=== PATIENT | male | born 1975 | race Caucasian/White ===

== ENCOUNTER 2019-10-04 06:42 | Inpatient (IN) ==
--- OUTSIDE RECORDS SUMMARY | 2019-10-04 06:45 | External Medical Summary | Continuity of Care Document ---
:1975 Author Name Carmen Roa, Provider Address Unavailable Unavailable , Care Team Providers Name Role Phone Megan Cartagena DO Unavailable [email or web address] Unavailable Unavailable Unavailable Unavailable Unavailable Assessments Assessed Problems:Encounter for preventive health examinationTravel advice encounter Problems Esophageal reflux (530.81) (K21.9) Vitamin D deficiency (268.9) (E55.9) Hypercholesterolemia (272.0) (E78.00) Travel advice encounter (V65.49) (Z71.84) Allergies and Adverse Reactions Iodides (Allergy) Medications Multivitamins TABS; TAKE 1 TABLET DAILY. Refills: 0 Vitamin D3 50 MCG (2000 UT) Oral Capsule; TAKE 1 CAPSULE Joanna ly Refills: 0 Fish Oil CAPS Refills: 0 Azithromycin 250 MG Oral Tablet; TAKE 2 TABLETS ON DAY 1 THEN TAKE 1 TABLET A DAY FOR 4 DAYS. DO Megan Cartagena Start: 17-Oct-2017 Quantity: 6 Refills: 0 Procedures Procedures not documented Immunizations Hepatitis A, adult On: 17-Oct-2017 11:22 Lot #: [id number], [employer] Typhim 25 MCG/0.5ML Intramuscular Solution On: 11:23 Lot #: [id number], [employer] Social History - Smoking Status Never smoker Interventions Medication ChangesAzithromycin 250 MG Oral Tablet - Start Medications/Immunizations AdministeredHepatitis A, adult; Done: 17 Oct 2017 Typhim 25 MCG/0.5ML Intramuscular Solution; Done: 17 Oct 2017 Discussion/SummaryTyphoid injection will be given today. His 1st hepatitis a will be given today. He is instructed to return in 6-12 for his 2nd final vaccination. Azithromycin will be prescribed for traveler's diarrheaneeded. All questions were answered. Plan of Treatment Planned Observations Planned Goals not documented Results No Known Results Results not documented Encounters Appointment; Megan Cartagena DO 17-Oct-2017 13:45 Encounter Diagnosis: Problem not documented
--- OUTSIDE RECORDS SUMMARY | 2019-10-04 06:45 | External Medical Summary | Continuity of Care Document ---
:1975 Author Name Carmen Roa, Provider Address Unavailable Unavailable , Care Team Providers Name Role Phone Megan Cartagena DO Unavailable [email or web address] Unavailable Unavailable Unavailable Unavailable Unavailable Assessments Assessed Problems:Encounter for preventive health examinationTravel advice encounter Problems Travel advice encounter (V65.49) (Z71.84) Hypercholesterolemia (272.0) (E78.00) Vitamin D deficiency (268.9) (E55.9) Esophageal reflux (530.81) (K21.9) Allergies and Adverse Reactions Iodides (Allergy) Medications Fish Oil CAPS Refills: 0 Azithromycin 250 MG Oral Tablet; TAKE 2 TABLETS ON DAY 1 THEN TAKE 1 TABLET A DAY FOR 4 DAYS. DO Megan Cartagena Start: 17-Oct-2017 Quantity: 6 Refills: 0 Multivitamins TABS; TAKE 1 TABLET DAILY. Refills: 0 Vitamin D3 50 MCG (2000 UT) Oral Capsule; TAKE 1 CAPSULE Joanna ly Refills: 0 Procedures Procedures not documented Immunizations Hepatitis A, adult On: 17-Oct-2017 11:22 Lot #: [id number], [employer] Typhim 25 MCG/0.5ML [...]
[2019-10-04] MEDS ORDERED: HEPARIN (PORCINE) 1000 UNIT/ML 10 ML (CATH LAB USE ONLY) ONE ×2 (06:54→07:58)
[2019-10-04] MEDS ORDERED: NiCARDipine HCL INJ 2.5 MG/ML 10 ML AMP ONE (06:54)
[2019-10-04] MEDS ORDERED: MIDAZOLAM HCL 1 MG/ML 2ML VIAL ONE (06:54)
[2019-10-04] MEDS ORDERED: NITROGLYCERIN/D5W 100MCG/ML 20ML SYR ONE (06:55)
[2019-10-04] MEDS ORDERED: ONDANSETRON INJ 2 MG/ML 2 ML VIAL ONE (06:56)
[2019-10-04] MEDS ORDERED: methylPREDNISolone 125 MG/2 ML VIAL IV STA (07:01)
[2019-10-04] MEDS ORDERED: DiphenhydrAMINE HCL 50 MG/ML VIAL IV STA (07:01)
[2019-10-04] MEDS ORDERED: fentaNYL citrate 100 MCG/2 ML VIAL IV STA ×4 (07:05→07:23)
[2019-10-04] MEDS ORDERED: ASPIRIN CHEW 324 MG PO STA (07:05)
[2019-10-04] MEDS ORDERED: NITROGLYCERIN 2% OINTMENT 30GM TUBE EXT STA (07:06)
[2019-10-04] MEDS ORDERED: fentaNYL citrate 100 MCG/2 ML VIAL ONE (07:06)
[2019-10-04 07:14] LABS: Basophils # (auto) 0.05 K/uL (0-0.2); Basophils % (auto) 0.5 %; Eosinophils # (auto) 0.28 K/uL (0-0.5); Eosinophils % (auto) 2.7 %; Hematocrit (blood only) 44.8 % (42-52); Hemoglobin 15.9 g/dL (14.0-18.0); Immature Granulocytes # (auto) 0.03 K/uL (0.00-0.02); Immature Granulocytes % (auto) 0.3 %; Lymphocytes # (auto) 2.76 K/uL (1.2-3.4); Lymphocytes % (auto) 26.7 %; Mean Corpuscular Hemoglobin 29.4 pg (25-34); Mean Corpuscular Hgb Conc 35.5 g/dL (32-36); Mean Platelet Volume 9.4 fL (7.4-10.4); Monocytes # (auto) 0.94 K/uL (0.11-0.59); Monocytes % (auto) 9.1 %; Neutrophils # (auto) 6.27 K/uL (1.4-6.5); Neutrophils % (auto) 60.7 %; Platelet Count 275 K/uL (130-400); RDW Coefficient of Variation 13.8 % (11.5-14.5); RDW Standard Deviation 41.5 fL (36.4-46.3); White Blood Count 10.33 K/uL (4.8-10.8)
[2019-10-04] MEDS ORDERED: SODIUM CHLORIDE 0.9% 500 ML IV SCH (07:15)
--- NOTE | 2019-10-04 07:19 | XRay Report ---
SINGLE VIEW CHEST CLINICAL HISTORY: Atypical chest pain. FINDINGS: An AP, portable, upright chest radiograph is compared to study dated 02/11/2016. The examina tion is degraded by portable technique and patient rotation. The cardiomediastinal silhouette is un remarkable. There is mild bibasilar atelectasis. The lungs and pleural spaces are otherwise clear. No pneumothorax is seen. The bony thorax is grossly intact. IMPRESSION: No active disease in the chest. ACT 112: Negative or not required by law. Electronically signed by: Narciso Chong M.D. 10/04/2019 7:18 AM
[2019-10-04] MEDS: fentaNYL citrate 100 MCG/2 ML VIAL ONE ×2 (07:22→08:16)
[2019-10-04 07:23] LABS: Partial Thromboplastin Ratio 0.9; Partial Thromboplastin Time 23.6 Seconds (21.0-31.0)
[2019-10-04 07:24] LABS: Alanine Aminotransferase 25 U/L (12-78); Aspartate Aminotransferase 12 U/L (15-37); BUN Creatinine Ratio 11.4 (10-20); Blood Urea Nitrogen 17 mg/dl (7-18); Calcium 9.5 mg/dl (8.5-10.1); Carbon Dioxide 25 mmol/L (21-32); Chloride 107 mmol/L (98-107); Creatinine Clr Calc Pharmacy 74.4 ml/min; Est GFR (African American) 64.8; Est GFR (Non-African American) 55.9; Glucose 113 mg/dl (70-99); Lipase 115 U/L (73-393); Magnesium 2.2 mg/dl (1.8-2.4); Potassium 3.1 mmol/L (3.5-5.1); Sodium 140 mmol/L (136-145)
[2019-10-04] MEDS ORDERED: TICAGRELOR 90 MG TAB PO ONE ×2 (07:27)
[2019-10-04 07:35] LABS: Alkaline Phosphatase 77 U/L (45-117); Bilirubin,Total 0.6 mg/dl (0.2-1); Creatine Kinase 94 U/L (39-308); Creatine Kinase MB < 1.0 ng/ml (0.5-3.6); Globulin 4.2 gm/dl (2.5-4.0); Total Protein 8.2 gm/dl (6.4-8.2); Troponin I < 0.015 ng/ml (0-0.045)
--- NOTE | 2019-10-04 07:35 | Pre Anesthesia Assessment ---
Date of Service October 04, 2019 Pre Sedation Assessment Vital Signs Pulse Pulse Resp BP BP Pulse Ox 10/04/19 07:25 77 120/97 95 10/04/19 07:19 84 145/94 H 100 10/04/19 07:17 85 18 133/102 H 100 10/04/19 07:13 80 133/102 H 100 10/04/19 07:10 79 10/04/19 07:05 82 141/106 H 99 10/04/19 07:00 83 100 10/04/19 06:58 88 140/100 99 10/04/19 06:54 97 H 16 10/04/19 06:47 82 24 118/85 99 Cardiovascular RRR, no murmur, no edema Respiratory normal respiratory effort, lungs clear to auscultation Pre-Sedation Airway Assessment Smoking Status: Never smoker Hx Sleep Apnea: No Hx Difficult Intubation: No Short, Thick Neck: No Thyromental Distance: > or= 3.5 Finger Breadths Oral Cavity: + WNL Mallampati Class: III ASA: ASA4 Procedure Planning Contraindications for Sedation: none Current Medications Reviewed: Yes Notes The planned sedation has been discussed with the patient. Informed Consent was obtained. I have identified the patient, determined the appropriateness of sedation and have assessed the patient immediately prior to the procedure. All medicine(s) and interventions are by my order.
[2019-10-04] MEDS ORDERED: ATROPINE SULFATE 0.1 MG/ML 10ML SYR IV ONE (07:41)
[2019-10-04] MEDS ORDERED: METOPROLOL TARTRATE 1 MG/ML VIAL IV ONE (07:54)
--- NOTE | 2019-10-04 07:54 | Emergency Department Note ---
Entered by Genie Thorne acting as a scribe for Khloe Bahena DO History of Present Illness General Chief complaint: Chest Pain Stated complaint: CHEST PAIN,LFT ARM PAIN Time Seen by Provider: 10/04/19 07:01 Source: patient History of Present Illness Onset (ago): minute(s) 30 Location: chest Radiation: back Pain Consistency: + other (sudden) Maximum Pain Intensity: 10 Quality: + other (heaviness) Associated symptoms: + chest pain, + diaphoresis and + nausea/vomiting (Positive nausea. Negative vomiting.) Treatments prior to arrival: none The patient is a 43 year old male presenting to the Emergency Department complaining of sudden chest pain starting 30 minutes ago. The patient reports that he was working out this morning and suddenly began to experience chest pain. He explains that his chest pain radiates to his back. He describes this pain as heaviness. He states that he is currently diaphoretic. He explains that his workout was high intensity but that this was not abnormal. He notes that he is nauseous but hasn't vomited. 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 The patient reports that his father and grandfather had a history of heart disease and that his father had a heart attack in his early 50s. He states that he has no history of hypertension, diabetes or hyperlipidemia. No recent illness. 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 and A total of 10 systems reviewed and were otherwise negative Physical Exam Vital Signs Vital Signs - 24 hr 10/04/19 06:47 10/04/19 06:54 10/04/19 06:58 Pulse Rate 82 97 H 88 Pulse Rate [Apical] Pulse Rate from SpO2 Sensor 99 H Pulse Rhythm [Apical] Pulse Strength [Apical] Respiratory Rate 24 16 Respiratory Effort / Characteristics Non-Labored Spontaneous Respiratory Depth Normal Blood Pressure 118/85 140/100 Blood Pressure [Left Arm] Blood Pressure Mean 96 128 Blood Pressure Mean [Left Arm] Blood Pressure Position Sitting Blood Pressure Position [Left Arm] Pulse Oximetry 99 99 Oxygen Delivery Method Room Air Sepsis Recent Fever Within 48 Hours No Sepsis New/Unexplained Change in Mental Status No Sepsis Action Taken by Nursing No Action Required 10/04/19 07:00 10/04/19 07:05 10/04/19 07:10 Pulse Rate 83 82 79 Pulse Rate [Apical] Pulse Rate from SpO2 Sensor 94 H 89 Pulse Rhythm [Apical] Pulse Strength [Apical] Respiratory Rate Respiratory Effort / Characteristics Respiratory Depth Blood Pressure 141/106 H Blood Pressure [Left Arm] Blood Pressure Mean 114 Blood Pressure Mean [Left Arm] Blood Pressure Position Blood Pressure Position [Left Arm] Pulse Oximetry 100 99 Oxygen Delivery Method Room Air Sepsis Recent Fever Within 48 Hours Sepsis New/Unexplained Change in Mental Status Sepsis Action Taken by Nursing 10/04/19 07:13 10/04/19 07:17 10/04/19 07:19 Pulse Rate 80 84 Pulse Rate [Apical] 85 Pulse Rate from SpO2 Sensor 84 82 Pulse Rhythm [Apical] Pulse Strength [Apical] Respiratory Rate 18 Respiratory Effort / Characteristics Respiratory Depth Blood Pressure 133/102 H 145/94 H Blood Pressure [Left Arm] 133/102 H Blood Pressure Mean 107 100 Blood Pressure Mean [Left Arm] 112 Blood Pressure Position Blood Pressure Position [Left Arm] Pulse Oximetry 100 100 100 Oxygen Delivery Method Room Air Sepsis Recent Fever Within 48 Hours Sepsis New/Unexplained Change in Mental Status Sepsis Action Taken by Nursing 10/04/19 07:25 10/04/19 08:09 10/04/19 08:20 Pulse Rate 77 120 H Pulse Rate [Apical] 78 Pulse Rate from SpO2 Sensor 75 Pulse Rhythm [Apical] Regular Pulse Strength [Apical] Normal Respiratory Rate 16 Respiratory Effort / Characteristics Non-Labored Spontaneous Respiratory Depth Normal Blood Pressure 120/97 114/70 Blood Pressure [Left Arm] 121/78 Blood Pressure Mean 103 Blood Pressure Mean [Left Arm] 92 Blood Pressure Position Blood Pressure Position [Left Arm] Sitting Pulse Oximetry 95 98 Oxygen Delivery Method Room Air Sepsis Recent Fever Within 48 Hours Sepsis New/Unexplained Change in Mental Status Sepsis Action Taken by Nursing GENERAL: Patient is in mild distress. Alert, uncomfortable appearing, well nourished, non-toxic EYE EXAM: normal conjunctiva, PERRL and EOM's grossly intact OROPHARYNX: no exudate, no erythema, lips, buccal mucosa, and tongue normal and mucous membranes are moist NECK: supple, no nuchal rigidity, no adenopathy, non-tender LUNGS: Clear to auscultation. Normal chest wall mechanics, no w/r/r HEART: no murmurs, S1 normal and S2 normal ABDOMEN: abdomen soft, non-tender, normo-active bowel sounds, no masses, no rebound or guarding. BACK: Back is symmetrical on inspection and there is no deformity, no midline tenderness, no CVA tenderness. SKIN: Pale and diaphoretic. UPPER EXTREMITIES: upper extremities are grossly normal. FROM, nml pulses b/l. LOWER EXTREMITIES: No pitting edema. FROM, nml pulses b/l. NEURO EXAM: Normal sensorium, cranial nerves II-XII grossly intact, normal speech, no gross weakness of arms, no gross weakness of legs. Course Course 0648: The patient was evaluated in room B12B, and a complete history and physical examination were performed. 0649: A heart alert was called at this time. 0729: I discussed the patients case with Dr. Simpson date puller who is now at the patient's bedside. He will evaluate the patient for further management. Administered Medications Aspirin (Ecotrin Ectab) 81 mg PO [facility] Stop: 11/03/19 08:59 Last Admin: 10/04/19 10:21 Dose: 81 mg Documented by: [id number] Atorvastatin Calcium (Lipitor) [facility] Stop: 11/03/19 08:59 Last Admin: 10/04/19 10:22 Dose: 80 mg Documented by: [id number] Lisinopril (Zestril) 5 mg PO [facility] Stop: 11/03/19 13:59 Last Admin: 10/04/19 13:04 Dose: 5 mg Documented by: [id number] Metoprolol Tartrate (Lopressor) 12.5 mg PO BID COUNTS INCLUDE 234 BEDS AT [facility] Stop: 11/03/19 08:59 Last Admin: 10/04/19 10:21 Dose: 12.5 mg Documented by: [id number] Potassium Chloride (Klor-Con M20) 40 meq PO BID COUNTS INCLUDE 234 BEDS AT THE [facility] Stop: 10/04/19 21:01 Last Admin: 10/04/19 13:04 Dose: 40 meq Documented by: [id number] Discontinued Medications Aspirin (Aspirin) 324 mg PO NOW STA Stop: 10/04/19 07:06 Last Admin: 10/04/19 07:16 Dose: 324 mg Documented by: [id number] Atropine Sulfate (Atropine Sulfate) Confirm Administered Dose 1 mg IV .Alphion [facility] Stop: 10/04/19 07:42 Last Admin: 10/04/19 08:09 Dose: 0.5 mg Documented by: [id number] Diphenhydramine HCl (Benadryl) 25 mg IV NOW STA Stop: 10/04/19 07:02 Last Admin: 10/04/19 07:05 Dose: 25 mg Documented by: [id number] Fentanyl Citrate (Fentanyl Citrate) Confirm Administered Dose 100 mcg .ROUTE .Alphion ONE Stop: 10/04/19 06:55 Last Increment: 10/04/19 08:16 Dose: 50 mcg Documented by: [id number] Fentanyl Citrate (Fentanyl Citrate) 50 mcg IV NOW STA Stop: 10/04/19 07:06 Last Admin: 10/04/19 07:08 Dose: 50 mcg Documented by: [id number] Fentanyl Citrate (Fentanyl Citrate) Confirm Administered Dose 100 mcg .ROUTE .Alphion ONE Stop: 10/04/19 07:07 Last Admin: 10/04/19 07:08 Dose: Not Given Documented by: [id number] Fentanyl Citrate (Fentanyl Citrate) 50 mcg IV NOW STA Stop: 10/04/19 07:11 Last Admin: 10/04/19 07:11 Dose: 50 mcg Documented by: [id number] Fentanyl Citrate (Fentanyl Citrate) 50 mcg IV NOW STA Stop: 10/04/19 07:19 Last Admin: 10/04/19 07:20 Dose: 50 mcg Documented by: [id number] Fentanyl Citrate (Fentanyl Citrate) 50 mcg IV NOW STA Stop: 10/04/19 07:24 Last Admin: 10/04/19 07:26 Dose: 50 mcg Documented by: [id number] Heparin Sodium (Porcine) (Heparin Iv Bolus (Family Law Paralegal Use Only)) Confirm Administered Dose 10,000 units .ROUTE .STK-MED ONE Stop: 10/04/19 06:55 Last Admin: 10/04/19 08:08 Dose: 10,000 units Documented by: [id number] Heparin Sodium (Porcine) (Heparin Iv Bolus (Family Law Paralegal Use Only)) Confirm Administered Dose 10,000 units .ROUTE .STK-MED ONE Stop: 10/04/19 07:59 Last Admin: 10/04/19 08:14 Dose: 2,000 units Documented by: [id number] Heparin Sodium/Sodium Chloride (Heparin/Nss 1000 Unit/500ml Flush Bag) Confirm Administered Dose 3,000 units IV .STK-MED ONE Stop: 10/04/19 06:55 Last Admin: 10/04/19 08:08 Dose: 3,000 units Documented by: [id number] Sodium Chloride (Nss) 500 mls @ 999 mls/hr IV .Q31M SHEYLA Stop: 10/04/19 07:45 Last Infusion: 10/04/19 07:52 Dose: 0 mls/hr Documented by: [id number] Admin: 10/04/19 07:21 Dose: 999 mls/hr Documented by: [id number] Sodium Chloride (Nss 1000ml) 1,000 mls @ 100 mls/hr IV .Q10H COUNTS INCLUDE 234 BEDS AT THE [facility] Stop: 10/04/19 15:59 Last Admin: 10/04/19 10:24 Dose: 100 mls/hr Documented by: [id number] Methylprednisolone (Solumedrol) 125 mg IV NOW STA Stop: 10/04/19 07:02 Last Admin: 10/04/19 07:06 Dose: 125 mg Documented by: [id number] Metoprolol Tartrate (Lopressor) Confirm Administered Dose 5 mg IV .STK-MED ONE Stop: 10/04/19 07:55 Last Increment: 10/04/19 08:09 Dose: 2.5 mg Documented by: [id number] Midazolam HCl (Versed) Confirm Administered Dose 2 mg .ROUTE .STK-MED ONE Stop: 10/04/19 06:55 Last Increment: 10/04/19 08:14 Dose: 1 mg Documented by: [id number] Miscellaneous Information (Patient's Allergy Info Needs Entered) 1 ea N/A Q30M COUNTS INCLUDE 234 BEDS AT THE [facility] Stop: 11/03/19 09:29 Last Admin: 10/04/19 10:42 Dose: Not Given Documented by: [id number] Admin: 10/04/19 10:42 Dose: Not Given Documented by: [id number] Admin: 10/04/19 10:42 Dose: Not Given Documented by: [id number] Nicardipine HCl (Cardene) Confirm Administered Dose 25 mg .ROUTE .STK-MED ONE Stop: 10/04/19 06:55 Last Admin: 10/04/19 08:08 Dose: 25 mg Documented by: [id number] Nitroglycerin (Nitro-Bid 2%) 1 inch EXT NOW STA Stop: 10/04/19 07:07 Last Admin: 10/04/19 07:15 Dose: 1 inch Documented by: [id number] Nitroglycerin/Dextrose (Nitroglycerin/D5w 100 Mcg/Ml 20ml Syringe) Confirm Administered Dose 2,000 mcg .ROUTE .STK-MED ONE Stop: 10/04/19 06:56 Last Admin: 10/04/19 08:09 Dose: 2,000 mcg Documented by: [id number] Ondansetron HCl (Zofran) Confirm Administered Dose 4 mg .ROUTE .STK-MED ONE Stop: 10/04/19 06:57 Last Admin: 10/04/19 07:07 Dose: 4 mg Documented by: [id number] Ticagrelor (Brilinta) 180 mg PO ONE ONE Stop: 10/04/19 07:28 Last Admin: 10/04/19 08:09 Dose: 180 mg Documented by: [id number] Ticagrelor (Brilinta) Confirm Administered Dose 180 mg PO .STK-MED ONE Stop: 10/04/19 07:28 Last Admin: 10/04/19 09:44 Dose: Not Given Documented by: [id number] Medical Decision Making Differential Diagnosis Differential diagnoses includes but is not limited to acute coronary syndrome, myocardial infarction, pericarditis, pulmonary embolus, aortic dissection, pneumonia, pneumothorax, musculoskeletal, shingles, esophageal. Medical Records Attestation: I reviewed the patient's medical records. Home Medications Current Medication List: was personally reviewed by me Laboratory Data Attestation: I reviewed the patient's lab results. Result diagrams: 10/04/19 06:52 10/04/19 06:52 Lab Results 10/04/19 10/04/19 10/04/19 Range/Units 06:52 06:52 06:52 WBC 10.33 (4.8-10.8) K/uL RBC 5.40 (4.7-6.1) M/uL Hgb 15.9 (14.0-18.0) g/dL Hct 44.8 (42-52) % MCV 83.0 (80-100) fL MCH 29.4 (25-34) pg MCHC 35.5 (32-36) g/dL RDW Std Deviation 41.5 (36.4-46.3) fL RDW Coeff of Antonieta 13.8 (11.5-14.5) % Plt Count 275 (130-400) K/uL MPV 9.4 (7.4-10.4) fL Immature Gran % (Auto) 0.3 % Neut % (Auto) 60.7 % Lymph % (Auto) 26.7 % Prentiss % (Auto) 9.1 % Eos % (Auto) 2.7 % Baso % (Auto) 0.5 % Immature Gran # (Auto) 0.03 H (0.00-0.02) K/uL Neut # (Auto) 6.27 (1.4-6.5) K/uL Lymph # (Auto) 2.76 (1.2-3.4) K/uL Prentiss # (Auto) 0.94 H (0.11-0.59) K/uL Eos # (Auto) 0.28 (0-0.5) K/uL Baso # (Auto) 0.05 (0-0.2) K/uL PT 10.0 (9.0-12.0) Seconds INR 1.0 (0.9-1.1) APTT 23.6 (21.0-31.0) Seconds PTT Ratio 0.9 Activ Coag Time Kaolin (94-140) SECONDS Sodium 140 (136-145) mmol/L Potassium 3.1 L (3.5-5.1) mmol/L Chloride 107 (98-107) mmol/L Carbon Dioxide 25 (21-32) mmol/L Anion Gap 8.0 (3-11) BUN 17 (7-18) mg/dl Creatinine 1.49 H (0.6-1.4) mg/dl POC Creatinine (0.6-1.3) mg/dl Est Cr Clr Drug Dosing 74.4 ml/min Est GFR ( Amer) 64.8 Est GFR (Non-Af Amer) 55.9 BUN/Creatinine Ratio 11.4 (10-20) Glucose 113 H (70-99) mg/dl Calcium 9.5 (8.5-10.1) mg/dl Magnesium 2.2 (1.8-2.4) mg/dl Total Bilirubin 0.6 (0.2-1) mg/dl AST 12 L (15-37) U/L ALT 25 (12-78) U/L Alkaline Phosphatase 77 (45-117) U/L Total Creatine Kinase 94 (39-308) U/L CK-MB (CK-2) < 1.0 (0.5-3.6) ng/ml CK/CKMB % Calc TNP POC Troponin I (0-0.045) ng/ml Troponin I < 0.015 (0-0.045) ng/ml Total Protein 8.2 (6.4-8.2) gm/dl Albumin 4.0 (3.4-5.0) gm/dl Globulin 4.2 H (2.5-4.0) gm/dl Albumin/Globulin Ratio 1.0 (0.9-2) Lipase 115 (73-393) U/L TSH 1.670 (0.300-4.500) uIu/ml Blood Type Antibody Screen 10/04/19 10/04/19 10/04/19 Range/Units 07:00 07:03 07:05 WBC (4.8-10.8) K/uL RBC (4.7-6.1) M/uL Hgb (14.0-18.0) g/dL Hct (42-52) % MCV (80-100) fL MCH (25-34) pg MCHC (32-36) g/dL RDW Std Deviation (36.4-46.3) fL RDW Coeff of Antonieta (11.5-14.5) % Plt Count (130-400) K/uL MPV (7.4-10.4) fL Immature Gran % (Auto) % Neut % (Auto) % Lymph % (Auto) % Prentiss % (Auto) % Eos % (Auto) % Baso % (Auto) % Immature Gran # (Auto) (0.00-0.02) K/uL Neut # (Auto) (1.4-6.5) K/uL Lymph # (Auto) (1.2-3.4) K/uL Prentiss # (Auto) (0.11-0.59) K/uL Eos # (Auto) (0-0.5) K/uL Baso # (Auto) (0-0.2) K/uL PT (9.0-12.0) Seconds INR (0.9-1.1) APTT (21.0-31.0) Seconds PTT Ratio Activ Coag Time Kaolin (94-140) SECONDS Sodium (136-145) mmol/L Potassium (3.5-5.1) mmol/L Chloride (98-107) mmol/L Carbon Dioxide (21-32) mmol/L Anion Gap (3-11) BUN (7-18) mg/dl Creatinine (0.6-1.4) mg/dl POC Creatinine 1.4 H (0.6-1.3) mg/dl Est Cr Clr Drug Dosing ml/min Est GFR ( Amer) Est GFR (Non-Af Amer) BUN/Creatinine Ratio (10-20) Glucose (70-99) mg/dl Calcium (8.5-10.1) mg/dl Magnesium (1.8-2.4) mg/dl Total Bilirubin (0.2-1) mg/dl AST (15-37) U/L ALT (12-78) U/L Alkaline Phosphatase (45-117) U/L Total Creatine Kinase (39-308) U/L CK-MB (CK-2) (0.5-3.6) ng/ml CK/CKMB % Calc POC Troponin I < 0.03 (0-0.045) ng/ml Troponin I (0-0.045) ng/ml Total Protein (6.4-8.2) gm/dl Albumin (3.4-5.0) gm/dl Globulin (2.5-4.0) gm/dl Albumin/Globulin Ratio (0.9-2) Lipase (73-393) U/L TSH (0.300-4.500) uIu/ml Blood Type A Positive Antibody Screen NEGATIVE 10/04/19 10/04/19 Range/Units 07:56 08:08 WBC (4.8-10.8) K/uL RBC (4.7-6.1) M/uL Hgb (14.0-18.0) g/dL Hct (42-52) % MCV (80-100) fL MCH (25-34) pg MCHC (32-36) g/dL RDW Std Deviation (36.4-46.3) fL RDW Coeff of Antonieta (11.5-14.5) % Plt Count (130-400) K/uL MPV (7.4-10.4) fL Immature Gran % (Auto) % Neut % (Auto) % Lymph % (Auto) % Prentiss % (Auto) % Eos % (Auto) % Baso % (Auto) % Immature Gran # (Auto) (0.00-0.02) K/uL Neut # (Auto) (1.4-6.5) K/uL Lymph # (Auto) (1.2-3.4) K/uL Prentiss # (Auto) (0.11-0.59) K/uL Eos # (Auto) (0-0.5) K/uL Baso # (Auto) (0-0.2) K/uL PT (9.0-12.0) Seconds INR (0.9-1.1) APTT (21.0-31.0) Seconds PTT Ratio Activ Coag Time Kaolin 213 H 230 H (94-140) SECONDS Sodium (136-145) mmol/L Potassium (3.5-5.1) mmol/L Chloride (98-107) mmol/L Carbon Dioxide (21-32) mmol/L Anion Gap (3-11) BUN (7-18) mg/dl Creatinine (0.6-1.4) mg/dl POC Creatinine (0.6-1.3) mg/dl Est Cr Clr Drug Dosing ml/min Est GFR ( Amer) Est GFR (Non-Af Amer) BUN/Creatinine Ratio (10-20) Glucose (70-99) mg/dl Calcium (8.5-10.1) mg/dl Magnesium (1.8-2.4) mg/dl Total Bilirubin (0.2-1) mg/dl AST (15-37) U/L ALT (12-78) U/L Alkaline Phosphatase (45-117) U/L Total Creatine Kinase (39-308) U/L CK-MB (CK-2) (0.5-3.6) ng/ml CK/CKMB % Calc POC Troponin I (0-0.045) ng/ml Troponin I (0-0.045) ng/ml Total Protein (6.4-8.2) gm/dl Albumin (3.4-5.0) gm/dl Globulin (2.5-4.0) gm/dl Albumin/Globulin Ratio (0.9-2) Lipase (73-393) U/L TSH (0.300-4.500) uIu/ml Blood Type Antibody Screen Imaging Data Radiologist's Impression: Radiology results as stated below per my review and the radiologist's interpretation: SINGLE VIEW CHEST CLINICAL HISTORY: Atypical chest pain. FINDINGS: An AP, portable, upright chest radiograph is compared to study dated 02/11/2016. The examination is degraded by portable technique and patient rotation. The cardiomediastinal silhouette is unremarkable. There is mild bibasilar atelectasis. The lungs and pleural spaces are otherwise clear. No pneumothorax is seen. The bony thorax is grossly intact. IMPRESSION: No active disease in the chest. ACT 112: Negative or not required by law. Electronically signed by: Narciso Chong M.D. 10/04/2019 7:18 AM ECG Data Attestation: I personally reviewed and interpreted this ECG as follows: Indication: + chest pain Rate (beats per minute): 81 Rhythm: + sinus with SA ECG Gilbert: + Normal ECG ST segments: + ST depression (ST depression in Lead 1, aVL and V2 V5.) and + ST elevation (. ST elevation in V2, V3 and aVF.) Blood Pressure Blood Pressure Findings: Elevated blood pressure Blood Pressure Disposition: further management by hospitalist (Dr. Simpson - date puller) MDM Narrative Patient presenting ill-appearing with chest pain and on initial EKG found to be having an acute ND. Heart alert called immediately patient examined at bedside. Labs drawn and sent, to IV started, patient given aspirin, nitro, fentanyl. Initially fentanyl changed to morphine due to persistence of pain while awaiting interventional cardiology. Patient also given Benadryl and Solu-Medrol due to reported IV contrast allergy. Upon confirmation with interventional cardiology, Brilinta also added. Patient remained hemodynamically stable. Pain was improved and patient's initial pallor and diaphoresis was improved in addition although patient not pain-free. Patient was made aware of all findings. We did assist him in contacting his family who eventually arrived shortly after the date puller arrived also. Chest x-ray reviewed by myself once it was performed at bedside, no evidence of wide mediastinum to suggest dissection. Patient with no personal risk factors for ACS, however reported strong family history. Patient taken to Family Law Paralegal after evaluation at bedside by Dr. Simpson. Impression & Plan Chest pain, ST elevation (STEMI) myocardial infarction, Hypokalemia, Nausea Discharge Plan Visit Data Chief Complaint: Chest Pain Stated Complaint: CHEST PAIN,LFT ARM PAIN ED Provider: Khloe Bahena Discharge Problem: Chest pain, ST elevation (STEMI) myocardial infarction, Hypokalemia, Nausea Patient Disposition: Admitted As Inpatient Discharge Instructions Interventions: ED Discharge Assessment Last Done: 10/04/19 07:32 Discharge Problem: Chest pain Qualifiers: Chest pain type: unspecified Qualified Code(s): R07.9 - Chest pain, unspecified ST elevation (STEMI) myocardial infarction Qualifiers: Involved coronary artery: unspecified coronary artery Qualified Code(s): I21.3 - ST elevation (STEMI) myocardial infarction of unspecified site The scribe's documentation has been prepared under my direction and personally reviewed by me in its entirety. I confirm that the note above accurately reflects all work, treatment, procedures, and medical decision making performed by me.
--- NOTE | 2019-10-04 08:27 | Cardiology Consultation ---
Date of Consultation October 04, 2019 Assessment & Plan (1) ST elevation (STEMI) myocardial infarction: Presentation consistent with inferior STEMI and recommend proceeding with emergent cardiac catheterization and likely primary PCI. No apparent contraindications to procedure. Discussed risks, benefits, alternatives of procedure with patient and they are willing to proceed. Given ticagrelor 180 mg in the ED. Further recommendations pending findings of coronary angiography. History of Present Illness History of Present Illness 43-year-old man here with acute chest pain and ECG concerning for acute IL. Rafal vilchis seen emergently in the ED after heart alert activated upon arrival. No prior cardiac history. Denies any significant past medical issues. Father had premature coronary artery disease and is post multiple stents. Chest pain began approximately 6:15 AM, approximately 45 minutes prior to arrival. Pain began just after he had finished exercising. Describes 9 out of 10 substernal pain with associated nausea, diaphoresis. Denies similar symptoms in the past. After sublingual nitroglycerin chest pain down to 5 out of 10 in the emergency department. Patient hemodynamically stable. EKG showed sinus rhythm with inferior ST elevations. Social history: No significant tobacco or alcohol. with kids. Works for [employer] at [employer]. Patient History Medical History History of kidney stones Surgical History History of testicular surgery Family History Other Heart disease Social History Feels Safe at Home: Yes Smoking Status: Never smoker Review of Systems Review of Systems: All systems reviewed & are unremarkable except as noted in HPI & below Physical Exam Physical Exam: General: Uncomfortable HEENT: Sclerae anicteric Lungs: Clear to auscultation bilaterall Cardiac: Regular rate and rhythm Abdomen: Soft, nontender Extremities: Warm, well perfused, no edema. 2+ radial pulses Skin: No rashes or lesions. Neuro: Nonfocal Psych: Alert orient x3, normal affect and mood Results & Data Vital Signs (Past 12 Hours) Vital Signs Pulse Pulse Resp BP BP Pulse Ox 10/04/19 07:25 77 120/97 95 10/04/19 07:19 84 145/94 H 100 10/04/19 07:17 85 18 133/102 H 100 10/04/19 07:13 80 133/102 H 100 10/04/19 07:10 79 10/04/19 07:05 82 141/106 H 99 10/04/19 07:00 83 100 10/04/19 06:58 88 140/100 99 10/04/19 06:54 97 H 16 10/04/19 06:47 82 24 118/85 99 PG Care Time/CCT Total # of Minutes Spent Total Time Spent with Patient: Total time spent is greater than 50% in coordination of care (as documented) at patient's floor/unit and/or counseling patient: Coding Level of Care Code 99230 Inpt Consult Level [address] elevation (STEMI) myocardial infarction I21.3 Involved coronary artery: unspecified coronary artery (1) ST elevation (STEMI) myocardial infarction Involved coronary artery: unspecified coronary artery Qualified Code(s): I21.3 - ST elevation (STEMI) myocardial infarction of unspecified site
[2019-10-04] MEDS ORDERED: ICU PROTOCOL FOR HYPERGLYCEMIA PRN (08:28)
[2019-10-04] MEDS ORDERED: NITROGLYCERIN SL 0.4 MG/TAB TAB SL PRN (08:30)
[2019-10-04] MEDS ORDERED: SODIUM CHLORIDE 0.9% 1000ML 1,000 ML IV SCH (08:30)
[2019-10-04] MEDS ORDERED: ACETAMINOPHEN 325 MG TAB PO PRN (08:30)
[2019-10-04] MEDS ORDERED: ONDANSETRON INJ 2 MG/ML 2 ML VIAL IV PRN (08:30)
--- NOTE | 2019-10-04 08:34 | History & Physical Report ---
Date of Service October 04, 2019 Assessment & Plan (1) ST elevation (STEMI) myocardial infarction: - Admit to ICU - S/p cardiac cath by Dr. Simpson - Trending troponins to measure peak - Brillinta loading in the the ER, continue with ASA for DAPT - Check lipids and A1C with am BMP and CBC - Statin therapy initiated with atorvastatin 80 mg QAM, lisinpril 5 mg QAM, metoprolol tartrate 12.5 mg BID and titrate as tolerates - Check echo - Allow HH diet today - CM to assist with dc planning DVT ppx: asa, lovenox 40 mg subq CODE: FULL Dispo: From home, likely discharge after 1d overnight. History of Present Illness Primary Care Provider: NO PCP This is a 43 yo M with minimal PMHx but strong family history of CAD, who presented with acute onset of left sided chest pain during a workout this morning which radiatied up into the neck and down into the left arm. A heart alert was called and was taken emergently to the medical laboratory technical officer due to ST wave elevations found on EKG. Found distal RCA blockage to the PLB, and 1 stent was placed. Pt was medicated with Brillinta in the ER prior to the procedure. The patient will be transfered from medical laboratory technical officer to the ICU throughout the day for monitoring. Past Med/Surg History Medical History History of kidney stones Surgical History History of testicular surgery Family History Other Heart disease Social History Feels Safe at Home: Yes Smoking Status: Never smoker Results & Data Vital Signs (Past 12 Hours) Vital Signs Pulse Pulse Resp BP BP Pulse Ox 10/04/19 08:20 78 16 121/78 98 10/04/19 08:09 120 H 114/70 10/04/19 07:25 77 120/97 95 10/04/19 07:19 84 145/94 H 100 10/04/19 07:17 85 18 133/102 H 100 10/04/19 07:13 80 133/102 H 100 10/04/19 07:10 79 10/04/19 07:05 82 141/106 H 99 10/04/19 07:00 83 100 10/04/19 06:58 88 140/100 99 10/04/19 06:54 97 H 16 10/04/19 06:47 82 24 118/85 99 PG Care Time/CCT Total # of Minutes Spent Total Time Spent with Patient: Total time spent is greater than 50% in coordination of care (as documented) at patient's floor/unit and/or counseling patient: Coding Diagnoses ST elevation (STEMI) myocardial infarction I21.3 Involved coronary artery: unspecified coronary artery (1) ST elevation (STEMI) myocardial infarction Involved coronary artery: unspecified coronary artery Qualified Code(s): I21.3 - ST elevation (STEMI) myocardial infarction of unspecified site
--- NOTE | 2019-10-04 08:35 | Post Anesthesia Assessment ---
Date of Service October 04, 2019 Post Sedation Assessment Vital Signs Pulse Pulse Resp BP BP Pulse Ox 10/04/19 08:20 78 16 121/78 98 10/04/19 08:09 120 H 114/70 10/04/19 07:25 77 120/97 95 10/04/19 07:19 84 145/94 H 100 10/04/19 07:17 85 18 133/102 H 100 10/04/19 07:13 80 133/102 H 100 10/04/19 07:10 79 10/04/19 07:05 82 141/106 H 99 10/04/19 07:00 83 100 10/04/19 06:58 88 140/100 99 10/04/19 06:54 97 H 16 10/04/19 06:47 82 24 118/85 99 Recovery Score Activity: Moves 4 extremities Respiration: Deep Breath/Cough Circulation: +/-20% PreAnes Value Consciousness: Fully Awake Oxygen Saturation: > 92% On Room Air Post Anesthesia Score: 10 Discharge Sedation Level of Care: Fast Track Phase II Post Sedation Plan On clinical assessment, the patient appears to have tolerated the sedation without complications. Patient is recovering as anticipated. Patient will continue to be monitored by nursing and may be discharged when sedation discharge criteria are met per below protocol. Upon Completions of procedure up to 15 minutes continue every 5 minute vital signs and the P.A.R. score; then discharge to a Phase I or Fast Track to Phase II per the following guidelines: * Discharge Patient to appropriate Phase II area if PAR is 8 or greater or return to pre- procedure baseline. The post - procedure orders will be as directed. * If PAR score is less than 8 or not return to pre-procedure baseline then patient will follow Phase I monitoring till PAR is reached for Phase II. The Phase I may be done in procedure room or may call to secure a Phase I area. * If naloxone or flumazenil are used for reversal, hold in Phase I for continued monitoring from when last reversal dose was given for a minimum of 60 minutes or longer pending the nurse and/or physician discretion of patient condition before discharge to Phase II. Please call the Sedation Physician to re-evaluate and complete post-note for discharge to Phase II area. Do NOT discharge from procedure sedation or Phase 1 until post- sedation evaluation note is complete by procedure /sedation MD Sedation Discharge Instructions to be given to the patient at discharge to home.
--- NOTE | 2019-10-04 08:48 | Cardiac Catheterization ---
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 Cardiac Status Clinical evaluation leading to the procedure CAD Presenation: STEMI Anginal Classification: CCS IV Heart Failure: No Cardiogenic Shock within 24 Hours: No Cardiac Arrest within 24 Hours: No Imaging Studies Past 6 Months: No Stress Studies Past 6 Months: No Diagnostic Physicians Name: Pranay Simpson MD Status: Emergency Closure Device Percutaneous Entry Location: Radial Closure Device: Radial Band Recommendations: PCI without planned CABG PCI Indication: Immediate PCI for STEMI Lesion Segment Name: R-PAV Culprit Artery: Yes Stenosis Prior to Rx (%): 100 Chronic Total Occlusion: No IVUS: No FFR: No Pre-Procedure RADHA Flow: 0 Previously Treated Lesion: No Lesion Complexity: Non-High/Non-C Lesion Length (mm): 15 Thrombus Present: Yes Bifurcation Lesion: Yes Guidewire Across Lesion: Stenosis Post-Procedure (%): 0 Post-Procedure RADHA Flow: 3 Devices(s) Deployed: Yes Yes Intraprocedure Events Significant Disection: No Perforation: No Cardiac Cath Procedure Full Procedure Date October 04, 2019 Pre-Procedure Diagnosis Pre-Procedure Diagnosis: STEMI AUC Score AUC Score: 9 Post-Procedure Diagnosis Post-Procedure Diagnosis: Severe CAD, Successful PCI and Normal Intracardiac Pressures Procedure(s) Performed Procedure(s) Performed: Coronary Angiography, Left Heart Cath and Drug Eluting Stent Pullboat Engineer Pranay Simpson MD Holistic Nutritionist(s) Rian Estimated Blood Loss Estimated Blood Loss: 15 Medication(s) Medication(s): Heparin, Lidocaine 1%, Nicardipine and Versed Medication(s): Ticagrelor Summary of Findings Indication: STEMI/Heart Alert Access: 6 Fr right radial artery Catheters: Walling, pigtail, JR4 guide Findings: LM -angiographically normal LAD -medium caliber, mid segment luminal irregularities, distal vessel tapers prior to apex. Medium caliber first and second diagonal without significant disease Circumflex -medium caliber, angiographically normal RCA -dominant, large caliber vessel, 100% acute occlusion of right posterior AV branch just after takeoff of right PDA. LVEDP -10 -- PCI -- Antithrombotic therapy: Heparin, ticagrelor Procedure: RCA cannulated with JR4 guide Surgical Product Sales Consultant 50 wire passed across lesion into distal vessel Right PAV lesion predilated with 2.5 compliant balloon Dilated lesion stented with 3.5 x 22 mm Andrew drug-eluting stent across takeoff of PDA and first right PLB Stent post-dilated with 4.0 noncompliant balloon IC vasodilators administered for spasm Post procedure RADHA 3 flow, stent well expanded with minimal residual stenosis and no apparent cardiac complications. Procedure course complicated by accelerated idioventricular rhythm which responded to metoprolol and bradycardia with reperfusion responding to atropine. Arterial Closure: TR band Summary: 1. Inferior STEMI/Occluded right posterior AV branch 2. No significant non-culprit vessel coronary artery disease 3. Normal intracardiac filling pressure 4. Successful PCI of distal RCA/right posterior AV branch with single drug- eluting stent (3.5 x 22 mm Andrew; postdilated with 4.0 NC balloon). Recommendations: Admit to ICU for continued monitoring Loaded with ticagrelor 180 mg in ED Continue dual-antiplatelet therapy for at least 1 year. Trend troponins until peak, Check Echo Uptitrate beta-haydee/KAITLIN as BP allows High-dose statin Consult cardiac Rehab Hemodynamics Rest Ao:: 133/88/96 Final Ao: 126/69/38 LV: 106/10 Recommendations Recommendations: PCI without planned CABG Specimens Specimens: None Radiation Exposure (mGy) 2109 Contrast (mls) 125 Fluids (cc crystalloids) Fluids (cc crystalloids): 600 Drains Drains: None Anesthesia Moderate Procedural Complication(s) None Disposition ICU I attest to the content of the Intraoperative Record and any orders documented therein. Any exceptions are noted below. [facility] Card Cath Procedure Codes Cardiac Catheterization Procedure 1: Cardiovascular Cath Procedures: 96563 Coronaries and LHC (+/-LV) Moderate Sedation Procedure 1: Sedation/Anesthesia: 42898 Mod Sedation by the same physician;Init15 Min Child Age 5 & Up Procedure 2: Sedation/Anesthesia: 10603 Mod Sedation by the same physician; Ea [id number] Minutes Stenting Procedure 1: Cardiovascular Stent Procedures: 47337 Perc transluminal revascularization of acute sub/total occl, aMI PG Care Time/CCT Total # of Minutes Spent Total Time Spent with Patient: Total time spent is greater than 50% in coordination of care (as documented) at patient's floor/unit and/or counseling patient:
--- NOTE | 2019-10-04 09:40 | History & Physical Report ---
Date of Service October 04, 2019 Assessment & Plan (1) ST elevation (STEMI) myocardial infarction: This is a 43yo M with no known significant PMH who presented this morning with acute onset of left sided chest pain following a workout and was found to have an inferior wall STEMI. -EKG revealed inferior STEMI/occluded right posterior AV branch and HEART ALERT was called -S/p successful PCI of distal RCA/right posterior AV branch with single drug- eluting stent by Dr. Simpson -Admit to ICU for continued monitoring -Per Dr. Simpson, continue dual-antiplatelet therapy for at least 1 year, up- titrate beta-haydee/KAITLIN as BP allows and initiate high dose statin -Trend troponins until peak, 2D echo ordered -Check a1c and lipid panel in AM -Consult cardiac Rehab DVT Ppx: SQ Lovenox Code status: FULL PCP: Remote history of following with Dr. Gupta of [facility]. Would like to resume following discharge. Dispo: Admitted to ICU for observation. Discharge planning ordered Patient seen in collaboration with Dr. Bullard. Please see addendum. History of Present Illness Chief Complaint: chest pain Primary Care Provider: NO PCP This is a 43yo M with no known significant PMH who presented this morning with acute onset of left sided chest pain following a workout. Pain began around 6:15 AM right after completing a circuit workout and is described as 9/10 left- sided chest pain with some radiation into left arm. Associated symptoms include diaphoresis and nausea but denies vomiting or shortness of breath. Denies any similar chest pain in the past and has no personal known history of CAD. Strong family history with father and both grandfathers with MIs in their 50s. Patient denies tobacco or significant alcohol use. In ED, EKG revealed inferior wall STEMI and heart alert was called. Dr. Simpson took to cardiac labor specialist and found distal RCA blockage and 1 stent was placed. Patient was loaded with Brilinta in the ER prior to the procedure. Is now recovering well in ICU without pain and will be monitored overnight. Denies fever, chills, lightheadedness, cough, rhinorrhea, palpitations, SOB, nausea, vomiting, dysuria, diarrhea or constipation. Allergies Allergy/AdvReac Type Severity Reaction Status Date / Time Iodinated Contrast Media Allergy Hives Verified 10/04/19 09:50 Past Med/Surg History Medical History (Updated 10/04/19 @ 11:13 by Breann Hassan MD) History of kidney stones Surgical History History of lithotripsy History of testicular surgery Family History Other Heart disease Social History (Updated 10/04/19 @ 10:15 by Garima Hensley PA-C) Preferred Language: Croatian Communication Ability: Effective Adobe Architect Required: No Beliefs That Will Affect Care: None Current Living Situation: Spouse and Family Other Information That Helps Us Care for You: No Feels Safe at Home: Yes Safety Concerns: Feels Safe At This Time Smoking Status: Never smoker Hx Alcohol Use: Yes Alcohol type: beer and wine Alcohol Intake Frequency: Rarely Hx Substance Use: No Review of Systems Review of Systems: At least ten systems reviewed and negative except as noted in the HPI. Physical Exam Physical Exam: Please see Dr. Bullard's addendum for physical exam. Results & Data Vital Signs (Past 12 Hours) Vital Signs Pulse Pulse Resp BP BP Pulse Ox 10/04/19 08:35 84 16 116/83 98 10/04/19 08:30 85 16 118/81 98 10/04/19 08:28 89 10/04/19 08:20 78 16 121/78 98 10/04/19 08:09 120 H 114/70 10/04/19 07:25 77 120/97 95 10/04/19 07:19 84 145/94 H 100 10/04/19 07:17 85 18 133/102 H 100 10/04/19 07:13 80 133/102 H 100 10/04/19 07:10 79 10/04/19 07:05 82 141/106 H 99 10/04/19 07:00 83 100 10/04/19 06:58 88 140/100 99 10/04/19 06:54 97 H 16 10/04/19 06:47 82 24 118/85 99 Laboratory Results Short CBC 10/04/19 Range/Units 06:52 WBC 10.33 (4.8-10.8) K/uL Hgb 15.9 (14.0-18.0) g/dL Hct 44.8 (42-52) % Plt Count 275 (130-400) K/uL BMP 10/04/19 06:52 Sodium 140 Potassium 3.1 L Chloride 107 Carbon Dioxide 25 BUN 17 Creatinine 1.49 H Glucose 113 H Calcium 9.5 Cardiac Enzymes 10/04/19 Range/Units 06:52 Total Creatine Kinase 94 (39-308) U/L CK-MB (CK-2) < 1.0 (0.5-3.6) ng/ml Troponin I < 0.015 (0-0.045) ng/ml Liver Function 10/04/19 Range/Units 06:52 Total Bilirubin 0.6 (0.2-1) mg/dl AST 12 L (15-37) U/L ALT 25 (12-78) U/L Alkaline Phosphatase 77 (45-117) U/L Albumin 4.0 (3.4-5.0) gm/dl Diagnostic Findings CXR: IMPRESSION: No active disease in the chest. ECG Findings: + ST elevation (Inferior) Code Status & VTE Plan VTE Prophylaxis Plan VTE Prophylaxis will be ordered: Yes Supervising Physician Co-Signing Physician Notes I performed a history and physical examination of the patient on 10/04/2019. I have discussed the patient's management with the advanced practitioner. Please refer to the PA-C note for the documented findings and plan of care. This is a 43-year-old male, who lives at home with his , with past medical history of kidney stones for which he underwent lithotripsy several years ago who came to the ER because of chest pain. The patient is relatively healthy and does not take any medications at home. He has never smoked and drinks only occasionally. He does not have any history of diabetes mellitus or hypertension. This morning he was working out and after he was done he developed left-sided chest pain along with some nausea. He did not have any shortness of breath. EKG in the ER showed ST elevations in the inferior leads. He was taken to the [facility] and was found to have acute occlusion of 1 of the branches of the right coronary artery which was treated with a drug-eluting stent. The patient was seen after the procedure and the ICU. On physical exam General: Alert and oriented x 3. NAD HENT: Normocephalic, atraumatic, pupils round and equally reactive to light, oral mucosa: moist Neck: Supple, no lymph nodes palpated, no thyromegaly CVS: Normal S1, S2. No murmur, rub or gallop. PMI non displaced. Peripheral pulses normal. Resp: Normal percussion. Normal breath sounds bilaterally. No wheezing or rales heard Abdomen: Soft, non tender, no hepatosplenomegaly. Bowel sounds positive Extremities: No pitting edema. Pressure dressing on the right wrist. Neuro: Power 5/5 throughout, grossly normal sensations, DTR's normal Psychiatry: Normal mood, normal thought process The patient was about to have some meal and stated that his pain was completely gone. Continue current medications and follow-up labs. Echocardiogram is pending. Rest as above. (1) ST elevation (STEMI) myocardial infarction Involved coronary artery: unspecified coronary artery Qualified Code(s): I21.3 - ST elevation (STEMI) myocardial infarction of unspecified site
--- NOTE | 2019-10-04 09:50 | Electrocardiogram Report ---
Test Reason : Blood Pressure : / mmHG Vent. Rate : 081 BPM Atrial Rate : 081 BPM P-R Int : 138 ms QRS Dur : 102 ms QT Int : 382 ms P-R-T Axes : 068 085 090 degrees QTc Int : 443 ms Sinus rhythm with marked sinus arrhythmia ST elevation consider inferior injury or acute infarct ACUTE MD / STEMI Consider right ventricular involvement in acute inferior infarct Abnormal ECG When compared with ECG of 11-FEB-2016 16:33, Acute inferior infarction is now Present Confirmed by Rafael Mackey ([id number]) on 10/04/2019 9:50:00 AM Referred By: REFERRED SELF Confirmed By:Rafael Mackey
[2019-10-04] MEDS: METOPROLOL TARTRATE 25 MG TAB PO SCH ×2 (10:21→21:57)
[2019-10-04] MEDS: ASPIRIN 81 MG ECTAB PO SCH (10:21)
[2019-10-04] MEDS: ATORVASTATIN 40 MG TAB PO SCH (10:22)
[2019-10-04] MEDS: PATIENT'S ALLERGY INFO NEEDS ENTERED SCH (10:42)
--- NOTE | 2019-10-04 11:17 | Critical Care Consultation ---
Date of Consultation October 04, 2019 Assessment & Plan (1) Admitted to intensive care unit: Reason Critically Ill: Mr. Cohen is a 43 year old male with no significant past medical history who presented to [facility] due to sudden onset chest pain. His EKG revealed an inferior STEMI. A heart alert was called, and he underwent an emergent cardiac catheterization with successful PCI of distal RCA/right posterior AV branch w/JEORME x 1. Neuro: CAM ICU: Negative Cardiac: STEMI s/p successful PCI of distal RCA/right posterior AV branch with single drug-eluting stent ECHO ordered Dual antiplatelet therapy x1 year Metoprolol and lisinopril started, titrate up as necessary High dose statin - 80mg of lipitor. FLP ordered with AM labs Cardiac rehab consulted Monitor on telemetry Respiratory: No respiratory problems noted, saturating well on room air GI: Heart healthy diet RENAL/LYTES: Hypokalemia - potassium low at 3.1 today, will replete with 40 mEq of potassium chloride and recheck tomorrow Creatinine elevated at 1.49, only prior baseline is a level of 1.2 in 2016. He did receive contrast with his cath, hold nephrotoxic agents, recheck tomorrow : No concerns ENDO: HbA1c ordered with AM labs TSH normal at 1.67 HEME: Monitor for signs and symptoms of bleeding post catheterization ID: No concern for infection at this time LINES/IV ACCESS: PIV x1 CODE STATUS: FULL DVT PROPHYLAXIS: Lovenox 40mg SQ daily. SCDs, encourage ambulation Thank you for allowing us to participate in the care of this patient. Please refer to my attending physician's documentation for any further recommendations. (2) ST elevation (STEMI) myocardial infarction: (3) Hypokalemia: Supervising Physician Co-Signing Physician Notes Dr. Hassan was resident physician during care of patient. I separately evaluated patient for el portions of the history and the exam. I was present during the critical portion of medical decision making, and I discussed the case with the resident. I generally agree with the findings and plan. Patient was discussed in multidisciplinary rounds. Patient underwent PCI for acute coronary syndrome. He has remained stable for approximately the last 12 hours. He is stable for downgrade out of the ICU. History of Present Illness Reason for Consultation: STEMI Requesting Physician: Dr. Simpson Attending Physician: Courtney Bullard MD History of Present Illness Mr. Cohen is a 43 year old male with no significant past medical history who presented to [facility] due to sudden onset left sided chest pain that began approximately 20 minute after exercise. He reports that he had completed circuit training, and developed 9/10 left sided chest pain with left arm tingling 20 minutes afterwards, at approximately 6:15AM. He denies associated shortness of breath, but does report feeling nauseated and diaphoretic. He reports a strong family history of cardiac disease, namely that both his father and grandfather suffered from myocardial infarctions in their 50s. He currently states that he is chest pain free, although does endorse some discomfort over his catheterization site on his right wrist. He tolerated his breakfast without any difficulty. PMHx: nil of note PSHx: hx of testicular surgery and lithotripsy Medications: none Allergies: Iodinated contrast material FHx: Significant for father and grandfather with MA in 50s. SHx: Non-smoker. 1-2 beers per night. No recreational drugs Allergies Allergy/AdvReac Type Severity Reaction Status Date / Time Iodinated Contrast Media Allergy Hives Verified 10/04/19 09:50 Patient History Medical History (Updated 10/04/19 @ 11:13 by Breann Hassan MD) History of kidney stones Surgical History History of lithotripsy History of testicular surgery Family History Other Heart disease Social History (Updated 10/04/19 @ 10:15 by Garima Hensley PA-C) Preferred Language: Upper Sorbian Communication Ability: Effective Return Agent [place] Required: No Beliefs That Will Affect Care: None Current Living Situation: Spouse and Family Other Information That Helps Us Care for You: No Feels Safe at Home: Yes Safety Concerns: Feels Safe At This Time Smoking Status: Never smoker Hx Alcohol Use: Yes Alcohol type: beer and wine Alcohol Intake Frequency: Rarely Hx Substance Use: No Review of Systems Constitutional: no fever and no chills Respiratory: no cough and no dyspnea Cardiovascular: no chest pain, no palpitations, no edema and no calf pain Gastrointestinal: no abdominal pain, no nausea, no vomiting and no change in bowel habits Genitourinary: no dysuria Physical Exam Constitutional: WD/WN, vitals as above Eyes: PERRL, conjunctivae normal, anicteric sclerae ENMT: external ear and nose normal, oropharynx normal Respiratory: normal respiratory effort, lungs clear to auscultation Cardiovascular: RRR, no murmur, no edema Gastrointestinal (Abdomen): normal bowel sounds, soft, nontender, no hepatosplenomegaly Skin: no rashes, warm and dry Psychiatric: A+Ox3, euthymic affect Results & Data Vital Signs (Past 12 Hours) Vital Signs Temp Pulse Pulse Resp BP BP Pulse Ox 10/04/19 10:30 92 H 20 123/83 96 10/04/19 10:15 90 14 123/91 98 10/04/19 10:01 105 H 12 127/80 96 10/04/19 09:45 80 20 124/78 97 10/04/19 09:30 77 18 118/81 98 10/04/19 09:15 90 18 102/75 98 10/04/19 09:00 90 14 118/79 98 10/04/19 08:58 36.8 C 89 16 120/82 99 10/04/19 08:35 84 16 116/83 98 10/04/19 08:30 85 16 118/81 98 10/04/19 08:28 89 10/04/19 08:20 78 16 121/78 98 10/04/19 08:09 120 H 114/70 10/04/19 07:25 77 120/97 95 10/04/19 07:19 84 145/94 H 100 10/04/19 07:17 85 18 133/102 H 100 10/04/19 07:13 80 133/102 H 100 10/04/19 07:10 79 10/04/19 07:05 82 141/106 H 99 10/04/19 07:00 83 100 10/04/19 06:58 88 140/100 99 10/04/19 06:54 97 H 16 10/04/19 06:47 82 24 118/85 99 Resident Activity Tracking Resident Involvement: Resident Care Provided Care Provided: Adult Hospital Medicine (1) ST elevation (STEMI) myocardial infarction Involved coronary artery: unspecified coronary artery Qualified Code(s): I 21.3 - ST elevation (STEMI) myocardial infarction of unspecified site
--- NOTE | 2019-10-04 11:24 | XCELERA ---
[id number] [id number]
--- NOTE | 2019-10-04 12:15 | Electrocardiogram Report ---
Test Reason : Blood Pressure : / mmHG Vent. Rate : 070 BPM Atrial Rate : 070 BPM P-R Int : 152 ms QRS Dur : 108 ms QT Int : 386 ms P-R-T Axes : 048 -10 057 degrees QTc Int : 416 ms Sinus rhythm with marked sinus arrhythmia Incomplete right bundle branch block Inferior-posterior infarct , age undetermined Nonspecific ST abnormality Abnormal ECG When compared with ECG of 04-OCT-2019 06:48, Findings of acute inferoposterior IA are no longer present Confirmed by Rafael Mackey ([id number]) on 10/04/2019 12:14:52 PM Referred By: REFERRED SELF Confirmed By:Rafael Mackey
[2019-10-04] MEDS: POTASSIUM CHLORIDE 20 MEQ TABCR PO SCH ×2 (13:04→22:06)
[2019-10-04] MEDS: lisinopriL 5 MG TAB PO SCH (13:04)
--- NOTE | 2019-10-04 18:33 | Billing Data ---
Date of Service October 04, 2019 Coding Level of Care Code 44757 Inpt Consult Level 5
[2019-10-04] MEDS: TICAGRELOR 90 MG TAB PO SCH (21:56)
[2019-10-05 06:04] LABS: Basophils # (auto) 0.02 K/uL (0-0.2); Basophils % (auto) 0.1 %; Eosinophils # (auto) 0.02 K/uL (0-0.5); Eosinophils % (auto) 0.1 %; Hematocrit (blood only) 41.4 % (42-52); Hemoglobin 13.8 g/dL (14.0-18.0); Immature Granulocytes # (auto) 0.03 K/uL (0.00-0.02); Immature Granulocytes % (auto) 0.2 %; Lymphocytes # (auto) 1.43 K/uL (1.2-3.4); Lymphocytes % (auto) 8.8 %; Mean Corpuscular Hemoglobin 28.5 pg (25-34); Mean Corpuscular Hgb Conc 33.3 g/dL (32-36); Mean Corpuscular Volume 85.5 fL (80-100); Mean Platelet Volume 9.9 fL (7.4-10.4); Monocytes # (auto) 0.96 K/uL (0.11-0.59); Monocytes % (auto) 5.9 %; Neutrophils # (auto) 13.81 K/uL (1.4-6.5); Neutrophils % (auto) 84.9 %; Platelet Count 213 K/uL (130-400); RDW Coefficient of Variation 14.2 % (11.5-14.5); RDW Standard Deviation 44.4 fL (36.4-46.3); Red Blood Count 4.84 M/uL (4.7-6.1); White Blood Count 16.27 K/uL (4.8-10.8)
[2019-10-05 06:40] LABS: BUN Creatinine Ratio 15.3 (10-20); Calcium 8.9 mg/dl (8.5-10.1); Creatinine Clr Calc Pharmacy 100.2 ml/min; Est GFR (African American) 93.5; Est GFR (Non-African American) 80.6; Potassium 4.1 mmol/L (3.5-5.1)
[2019-10-05 07:18] LABS: Estimated Average Glucose 120 mg/dl; Hemoglobin A1C 5.8 % (4.5-5.6)
[2019-10-05] MEDS: ASPIRIN 81 MG ECTAB PO SCH (07:39)
[2019-10-05] MEDS: lisinopriL 5 MG TAB PO SCH (07:39)
[2019-10-05] MEDS: METOPROLOL TARTRATE 25 MG TAB PO SCH (07:39)
[2019-10-05] MEDS: ATORVASTATIN 40 MG TAB PO SCH (07:39)
[2019-10-05] MEDS: TICAGRELOR 90 MG TAB PO SCH ×2 (07:40→18:11)
[2019-10-05] MEDS ORDERED: ENOXAPARIN INJ 40 MG/0.4 ML SYR SQ SCH (08:30)
--- NOTE | 2019-10-05 12:28 | Cardiology Progress Note ---
Date of Service October 05, 2019 Assessment & Plan (1) ST elevation (STEMI) myocardial infarction: 2. Minimal non-culprit vessel coronary artery disease 3. Preserved LV function 4. Dyslipidemia 5. Atrial septal aneurysm with suspected left to right shunt and RV dilation Patient looks great today. Remains chest pain-free. Troponin peaking. LV function preserved. Hemodynamically and electrically stable. Post procedure labs stable. No apparent access site complications. Continue DAPT with aspirin, ticagrelor Increase metoprolol to 25 mg twice daily Continue lisinopril Continue high-intensity statin Up walking halls today. If stable could potentially be discharged later today versus tomorrow a.m. Will need outpatient cardiology follow-up regarding possible hemodynamically significant interatrial shuntTEE versus MRI in the future. Follow-up with me in 2 to 3 weeks. Admission and Anticipated Discharge Date Admission Date: October 04, 2019 Subjective Feeling well today. No recurrent chest pain. No shortness of breath. No other new complaints. Telemetry reviewedno events. Review of Systems Review of Systems: All systems reviewed & are unremarkable except as noted in HPI & below Physical Exam Physical Exam: General: Comfortable, no acute distress HEENT: Sclerae anicteric, mucous membranes moist Lungs: Clear to auscultation bilaterally, no rhonchi or wheezes Cardiac: Regular rate and rhythm, no murmurs Abdomen: Soft, nontender Extremities: Warm, well perfused, no edema. Right radial artery access site with no ecchymosis, hematoma. Distal pulse and sensation intact. Skin: No rashes or lesions. Neuro: Nonfocal Psych: Alert orient x3, normal affect and mood Results & Data ([facility]) Vital Signs (Past 12 Hours) Vital Signs Temp Pulse Pulse Resp BP Pulse Ox 10/05/19 11:07 97.3 F L 70 17 110/64 96 10/05/19 07:40 76 10/05/19 07:18 97.9 F 73 17 108/74 96 10/05/19 03:00 98.6 F 70 17 98/53 L 98 10/05/19 02:15 75 116/64 PG Care Time/CCT Total # of Minutes Spent Total Time Spent with Patient: Total time spent is greater than 50% in coordination of care (as documented) at patient's floor/unit and/or counseling patient: Coding Level of Care Code 94063 Subseq Hosp Care Lvl [address] elevation (STEMI) myocardial infarction I21.3 Involved coronary artery: unspecified coronary artery (1) ST elevation (STEMI) myocardial infarction Involved coronary artery: unspecified coronary artery Qualified Code(s): I21.3 - ST elevation (STEMI) myocardial infarction of unspecified site
--- NOTE | 2019-10-05 14:19 | Hospitalist Progress Note ---
Date of Service October 05, 2019 Assessment & Plan (1) ST elevation (STEMI) myocardial infarction: acute ST elevation (STEMI) myocardial infarction of inferior wall Status post Percutaneous coronary intervention (PCI) of distal RCA/right posterior AV branch with single drug-eluting stent Atrial septal aneurysm with suspected left to right shunt and RV dilation This is a 43yo M with no known significant PMH who presented on 10/05/2019 with acute onset of left sided chest pain following a workout and was found to have an inferior wall STEMI. In ED, EKG revealed inferior wall STEMI and heart alert was called. Dr. Simpson took to cardiac labor supervisor and found distal RCA blockage and 1 stent was placed (Status post Percutaneous coronary intervention (PCI) of distal RCA/right posterior AV branch with single drug-eluting stent) post cardiac cath echocardiogram 1.Normal LV size, mild concentric LVH 2. LVEF 55 to 60%, moderate inferolateral hypokinesis 3. RV moderatley dilated. RA dilated. Normal RV function. 4. Atrial septal aneurysm with positive saline contrast study for right to lefter interatrial shunt. 5. Normal estimated RA and PA pressures. HbA1c is 5.8 primary care doctor appointment 10/11/2019 11:20 AM Provider Jose A Gupta MD Department [facility] (outpatient cardiology follow-up regarding possible hemodynamically significant interatrial shuntTEE versus MRI in the future) Cardiology clinic with Dr. Pranay Simpson on 10/14/2019 at [address], [address] [place] [address] Discharge medications of aspirin 81 mg daily and ticagrelor (also known as Brilinta) 90 mg twice a day (this dual-antiplatelet therapy should be for at least 1 year because of cardiac stent) metoprolol to 25 mg twice daily lisinopril 5 mg daily atorvastatin 80 mg daily nitro sublingual: take every 5 minutes as needed for chest pain up to 3 doses; if chest pain still present seek emergent medical care or call 911 for EMS 10/05/2019: hospitalist doctor noted telemetry run of Vtach around 2 AM but patient denies pain symptoms. He does not have acute distress and is ambulating well with symptoms. No chest pain. No palpitations. No nausea. No vomiting. No dizziness. No lightheadedness. Patient awaiting to hear again from whether he can be discharged from hospital because patient feeling well. Hypokalemia (resolved) -admission serum potassium 3.1 -after repletion, serum potassium now at goal as 4.1 Admission and Anticipated Discharge Date Admission Date: October 04, 2019 Subjective hospitalist doctor noted telemetry run of Vtach around 2 AM but patient denies pain symptoms. He does not have acute distress and is ambulating well with symptoms. No chest pain. No palpitations. No nausea. No vomiting. No dizziness. No lightheadedness. Review of Systems Review of Systems: All systems reviewed & are unremarkable except as noted in HPI & below Physical Exam Constitutional: WD/WN, vitals as above Eyes: PERRL, conjunctivae normal, anicteric sclerae EOM intact bilaterally ENMT: external ear and nose normal, oropharynx normal Neck: trachea midline, no thyromegaly normal visual inspection Respiratory: normal respiratory effort, lungs clear to auscultation Cardiovascular: RRR, no murmur, no edema Gastrointestinal (Abdomen): normal bowel sounds, soft, nontender, no hepatosplenomegaly Musculoskeletal: Head/Neck/Chest: normocephalic and head atraumatic Neurologic: PERRL, EOMI, accommodation nl, no face palsy, no dysarthria CN's II-XI intact bilaterally Psychiatric: A+Ox3, euthymic affect Results & Data ([facility]) Vital Signs (Past 12 Hours) Vital Signs Temp Pulse Pulse Resp BP Pulse Ox 10/05/19 11:07 36.3 C L 70 17 110/64 96 10/05/19 07:40 76 10/05/19 07:18 36.6 C 73 17 108/74 96 10/05/19 03:00 37.0 C 70 17 98/53 L 98 (1) ST elevation (STEMI) myocardial infarction Involved coronary artery: unspecified coronary artery Qualified Code(s): I21.3 - ST elevation (STEMI) myocardial infarction of unspecified site
--- NOTE | 2019-10-05 17:48 | Discharge Summary ---
Date of Service October 05, 2019 Admission HPI Per Admitting Provider This is a 43yo M with no known significant PMH who presented this morning with acute onset of left sided chest pain following a workout. Pain began around 6:15 AM right after completing a circuit workout and is described as 9/10 left- sided chest pain with some radiation into left arm. Associated symptoms include diaphoresis and nausea but denies vomiting or shortness of breath. Denies any similar chest pain in the past and has no personal known history of CAD. Strong family history with father and both grandfathers with MIs in their 50s. Patient denies tobacco or significant alcohol use. In ED, EKG revealed inferior wall STEMI and heart alert was called. Dr. Simpson took to cardiac lab tech and found distal RCA blockage and 1 stent was placed. Patient was loaded with Brilinta in the ER prior to the procedure. Is now recovering well in ICU without pain and will be monitored overnight. Denies fever, chills, lightheadedness, cough, rhinorrhea, palpitations, SOB, nausea, vomiting, dysuria, diarrhea or constipation. Admission Exam Per Admitting Provider General: Alert and oriented x 3. NAD HENT: Normocephalic, atraumatic, pupils round and equally reactive to light, oral mucosa: moist Neck: Supple, no lymph nodes palpated, no thyromegaly CVS: Normal S1, S2. No murmur, rub or gallop. PMI non displaced. Peripheral pulses normal. Resp: Normal percussion. Normal breath sounds bilaterally. No wheezing or rales heard Abdomen: Soft, non tender, no hepatosplenomegaly. Bowel sounds positive Extremities: No pitting edema. Pressure dressing on the right wrist. Neuro: Power 5/5 throughout, grossly normal sensations, DTR's normal Psychiatry: Normal mood, normal thought process Principal Diagnosis acute ST elevation (STEMI) myocardial infarction of inferior wall Status post Percutaneous coronary intervention (PCI) of distal RCA/right posterior AV branch with single drug-eluting stent Atrial septal aneurysm with suspected left to right shunt and RV dilation Hypokalemia (resolved) Discharge Exam Constitutional WD/WN, vitals as above Eyes PERRL, conjunctivae normal, anicteric sclerae EOM intact bilaterally ENMT external ear and nose normal, oropharynx normal Neck trachea midline, no thyromegaly normal visual inspection Respiratory normal respiratory effort, lungs clear to auscultation Cardiovascular RRR, no murmur, no edema Gastrointestinal (Abdomen) normal bowel sounds, soft, nontender, no hepatosplenomegaly Musculoskeletal Head/Neck/Chest: normocephalic and head atraumatic Neurologic PERRL, EOMI, accommodation nl, no face palsy, no dysarthria CN's II-XI intact bilaterally Psychiatric A+Ox3, euthymic affect Discharge Data Allergies Allergy/AdvReac Type Severity Reaction Status Date / Time Iodinated Contrast Media Allergy Hives Verified 10/04/19 09:50 Consultations 10/04/19 08:28 Consult Case Management - Discharge Planning Routine Consult Construction Economist Routine 10/04/19 08:34 Consult Cardiac Rehabilitation Routine 10/04/19 08:35 Consult Case Management - Discharge Planning Routine 10/04/19 10:56 Consult Cardiology Routine Procedures Performed Operation Date: 10/04/19 07:00 Actual Procedures p Aspiration/PCI w/JEROME for Stemi - Ross Simpson MD s Cineradiography w/Routine Exam(Not Applicable) - Ross Simpson MD s Cath, Left with Cors and Vent - Ross Simpson MD Ordered Studies 10/04/19 06:57 CL Cath Imgs for PACS use only Stat Hospital Course (1) ST elevation (STEMI) myocardial infarction: acute ST elevation (STEMI) myocardial infarction of inferior wall Status post Percutaneous coronary intervention (PCI) of distal RCA/right posterior AV branch with single drug-eluting stent Atrial septal aneurysm with suspected left to right shunt and RV dilation This is a 43yo M with no known significant PMH who presented on 10/05/2019 with acute onset of left sided chest pain following a workout and was found to have an inferior wall STEMI. In ED, EKG revealed inferior wall STEMI and heart alert was called. Dr. Simpson took to cardiac lab tech and found distal RCA blockage and 1 stent was placed (Status post Percutaneous coronary intervention (PCI) of distal RCA/right posterior AV branch with single drug-eluting stent) post cardiac cath echocardiogram 1.Normal LV size, mild concentric LVH 2. LVEF 55 to 60%, moderate inferolateral hypokinesis 3. RV moderatley dilated. RA dilated. Normal RV function. 4. Atrial septal aneurysm with positive saline contrast study for right to lefter interatrial shunt. 5. Normal estimated RA and PA pressures. HbA1c is 5.8 primary care doctor appointment 10/11/2019 11:20 AM Provider Jose A Gupta MD Department [facility] (outpatient cardiology follow-up regarding possible hemodynamically significant interatrial shuntTEE versus MRI in the future) Cardiology clinic with Dr. Pranay Simpson on 10/14/2019 at [address], [address] [place] [address] Discharge medications of aspirin 81 mg daily and ticagrelor (also known as Brilinta) 90 mg twice a day (this dual-antiplatelet therapy should be for at least 1 year because of cardiac stent) metoprolol to 25 mg twice daily lisinopril 5 mg daily atorvastatin 80 mg daily nitro sublingual: take every 5 minutes as needed for chest pain up to 3 doses; if chest pain still present seek emergent medical care or call 911 for EMS 10/05/2019: hospitalist doctor noted telemetry run of Vtach around 2 AM but patient denies pain symptoms. He does not have acute distress and is ambulating well with symptoms. No chest pain. No palpitations. No nausea. No vomiting. No dizziness. No lightheadedness. Patient awaiting to hear again from assessed patient this AM and also in evening and reported to hospitalist that patient can be discharged Hypokalemia (resolved) -admission serum potassium 3.1 -after repletion, serum potassium now at goal as 4.1 Total Time Total Time Spent Total Time Spent (In Minutes): 40 minutes Total Time Includes: Examination of the Patient, Discharge Planning, Medication Reconciliation and Communication With Other Providers Discharge Plan Discharge Items Patient Disposition: Home - Self-Care Reason For Visit: STEMI Discharge Diagnosis: acute ST elevation (STEMI) myocardial infarction of inferior wall Status post Percutaneous coronary intervention (PCI) of distal RCA/right posterior AV branch with single drug-eluting stent Atrial septal aneurysm with suspected left to right shunt and RV dilation Hypokalemia (resolved) Condition on Discharge: Good Activity: Per Instructions section Exercise Comment: no heavy lifting of objects above 10 pounds with right arm in 1 week Non-emergency contact: Primary Care Provider and Embedded Developer Call non-emergency contact if: you have any medication questions Follow-up/Referrals: PCP,NO [Primary Care Provider] - Diet: Heart Healthy Addtl Attending Provider Instructions: In ED, EKG revealed inferior wall STEMI and heart alert was called. Dr. Simpson took to cardiac lab tech and found distal RCA blockage and 1 stent was placed (Status post Percutaneous coronary intervention (PCI) of distal RCA/right posterior AV branch with single drug-eluting stent) post cardiac cath echocardiogram 1.Normal LV size, mild concentric LVH 2. LVEF 55 to 60%, moderate inferolateral hypokinesis 3. RV moderatley dilated. RA dilated. Normal RV function. 4. Atrial septal aneurysm with positive saline contrast study for right to lefter interatrial shunt. 5. Normal estimated RA and PA pressures. primary care doctor appointment 10/11/2019 11:20 AM Provider Jose A Gupta MD [facility] (outpatient cardiology follow-up regarding possible hemodynamically significant interatrial shuntTEE versus MRI in the future) Cardiology clinic with Dr. Pranay Simpson on 10/14/2019 at [address], [address] [place] [address] Discharge medications of aspirin 81 mg daily and ticagrelor (also known as Brilinta) 90 mg twice a day (this dual-antiplatelet therapy should be for at least 1 year because of cardiac stent) metoprolol to 25 mg twice daily lisinopril 5 mg daily atorvastatin 80 mg daily nitro sublingual: take every 5 minutes as needed for chest pain up to 3 doses; if chest pain still present seek emergent medical care or call 911 for EMS Pending Studies at Discharge: No Stand-Alone Forms: Call Back Authorization, My [facility], Smoking Cessation Medications and DC Order Prescriptions: New aspirin [Ecotrin Low Strength] 81 mg Tablet,Delayed Release (Dr/Ec) 81 mg PO QAM 30 Days Qty: 30 RF: 0 atorvastatin 40 mg Tablet 80 mg PO QAM 30 Days Qty: 60 RF: 0 lisinopril [Zestril] 5 mg Tablet 5 mg PO QAM 30 Days Qty: 30 RF: 0 metoprolol tartrate 25 mg Tablet 25 mg PO BID 30 Days Qty: 60 RF: 0 Brilinta 90 mg Tablet 90 mg PO BID 30 Days Qty: 60 RF: 0 nitroglycerin [Nitrostat] 0.4 mg Tablet, Sublingual 0.4 mg sublingual PRN PRN (Reason: chest pain) 30 Days Qty: 30 RF: 0 Discharge Orders: Discharge Order (Routine); Ordered 10/05/19 Ordered By: Hugo Gary/Other Patient Handouts: Discharge Instructions for Heart Attack Admission Data Admit Date/Time: 10/04/19 08:28 Attending Provider: Hugo Garrison Admit Provider: Ross Simpson Primary Care Provider: PCP,NO Other Providers: Armani Jimenez ; Ross Simpson
[2019-10-05] MEDS ORDERED: METOPROLOL TARTRATE 25 MG TAB PO SCH (21:00)
== END 2019-10-05 18:34 | disposition home or self-care (01) | DRG 247 ==
LOC: ED 06:42 → 2E 07:32 → CC 07:32 → 1E 08:28 → SUATTDRO 08:28 → 2E 18:51